=== PATIENT | female | born 1945 | race Caucasian/White ===

== ENCOUNTER → 2017-09-03 | Emergency (ER) | payer OTHER ==
[~2017-09-03] VITALS: Ht 152.4 cm; Wt 53.1 kg
[~2017-09-03] MED LIST: AMARYL 1 MG; ARIMIDEX; COZAAR50 MG; RYTARY ER 36.21 EACH; SYNTHROID112 MCG; TOPROL XL50 M1
== END | disposition home or self-care (01) ==
LOC: ER 13:17
DX: M62.838 Other muscle spasm (principal)